=== PATIENT | male | born 1990 | race Two or more races ===

== ENCOUNTER → 2024-11-09 | Outpatient (CLI) | payer OTHER, SELFPAY ==
[2024-11-09 08:38] LABS: Motl CLS 2 55
[2024-11-09 08:39] LABS: % Variance Motility 9 %; Motl CLS 1 50; Sperm Motility 52 % (>=50)
[2024-11-09 08:40] LABS: Room Temperature 24 (20-27C (Area))
[2024-11-09 12:37] LABS: % Variance 7 %; Count Side 1 15; Count Side 2 14; Sperm Count 14 Million (20-50)
== END | disposition home or self-care (01) ==
LOC: SLDO 07:53
PROVIDERS: PCP Specialist; Referring Provider Specialist; Visit Provider Specialist
DX: N46.01 Organic azoospermia (principal)
CPT/HCPCS: 89310